=== PATIENT | female | born 1970 | race African-American/Black ===

== ENCOUNTER 2024-01-31 09:57 | Outpatient (CLI) | payer BC, SELFPAY ==
--- NOTE | ~2024-01-31 | XR_ITS ---
XR knee RT min 4V DATE: 01/31/2024 10:45 INDICATION: Right knee pain TECHNIQUE: [place] and standing AP, PA and lateral views COMPARISON: None FINDINGS: Moderate loss of medial compartment joint space with periarticular spurring of the medial f emoral condyle and medial tibial plateau. Lateral compartment joint space is well preserved. There is prominent periarticular spurring at the patellofemoral joint. No fracture or dislocation or joint effusion, radiopaque intra-articular loose body or chondrocalcino sis. No periosteal reaction or bone destruction. IMPRESSION: Osteoarthritis involving the patellofemoral and medial compartments Reviewed, dictated and finalized at location A.
--- NOTE | ~2024-01-31 | XR_ITS ---
XR lumbar spine 2-3V DATE: 01/31/2024 10:45 INDICATION: Low back pain TECHNIQUE: Standing AP, lateral and coned lateral lumbosacral views COMPARISON: None FINDINGS: There is degenerative change at the apophyseal joints with associated minimal grade 1 anter olisthesis at L4-5. There is degenerative spurring throughout the lumbar spine but lumbar and lumbosacral interspaces are relatively well preserved. No fracture or bone destruction. The lumbar pedicles are intact. IMPRESSION: Minimal grade 1 anterolisthesis at L4-5 due to degenerative change at the possible joints Degenerative spurring of the lumbar spine Reviewed, dictated and finalized at location A.
--- NOTE | ~2024-01-31 | XR_ITS ---
XR_[id number]_CR DATE: 01/31/2024 10:45 INDICATION: Pain TECHNIQUE: Standing AP, lateral and open-mouth views COMPARISON: None FINDINGS: C1 and C2 are normally aligned and the odontoid process is intact. No fracture or dislocati on or locked facet or prevertebral soft tissue swelling. There is slight anterolisthesis at C3-4. Very prominent anteroinferior spur at C5. However, cervical interspaces appear relatively preserved. IMPRESSION: Mild cervical spondylosis Reviewed, dictated and finalized at Location [facility]. Reviewed, dictated and finalized at location A. IMPRESSION: Mild cervical spondylosis
--- NOTE | ~2024-01-31 | XR_ITS ---
XR thoracic spine 2V DATE: 01/31/2024 10:45 INDICATION: Neck pain, back pain TECHNIQUE: Standing AP, lateral, swimmer views COMPARISON: None FINDINGS: Normal alignment of the thoracic spine. No fracture or dislocation or bone destruction. No paraspinal soft tissue thickening. There is diffuse idiopathic skeletal hyperostosis of the thoracic spine. IMPRESSION: Diffuse idiopathic skeletal hyperostosis of the thoracic spine Reviewed, dictated and finalized at location A.
== END 2024-01-31 09:58 | disposition home or self-care (01) ==
PROVIDERS: PCP Internal Medicine Endocrinology, Diabetes & Metabolism; Visit Provider Chiropractor
DX: M54.2 Cervicalgia (principal); M54.50 Low back pain, unspecified; M25.561 Pain in right knee; M17.11 Unilateral primary osteoarthritis, right knee; M43.16 Spondylolisthesis, lumbar region; M48.14 Ankylosing hyperostosis [Forestier], thoracic region
CPT/HCPCS: 72040; 72070; 72100; 73564